=== PATIENT | female | born 1980 | race African-American/Black ===

== ENCOUNTER 2016-10-28 10:34 | Emergency (ER) | payer OTHER ==
[~2016-10-28] VITALS: Ht 170.2 cm; Wt 68.0 kg
[~2016-10-28 10:34] MED LIST: METHO500 PO; NAPR500 PO
[2016-10-28 10:37] VITALS: BP 127/79; PULSE 86; RESP 20; TEMP 98.1; O2SAT 98
--- NOTE | 2016-10-28 11:50 | PD ---
HPI Chief Complaint: Skin Problem Time Seen by Provider: 11:49 Travel History International Travel<30 days: No Contact w/Intl Traveler<30days: No Traveled to known affect area: No History of Present Illness HPI 36-year-old female presents to the emergency Department with complaint of a burn to her left hand after spilling hot water on it last night. Denies paresthesias, loss of sensation, decreased range of motion, decreased strength to the affected hand. Denies fever, chills, nausea, vomiting. Has tried many home treatments, ailments, and medications to alleviate symptoms with good relief. Reports ice to the area works best. Reports blistering to the area. Denies tetanus being up-to-date. Allergies to seafood. No other modifying factors or associated signs and symptoms. PFSH Past Medical History Medical History: Denies Significant Hx Hx Anticoagulant Therapy: No Chemotherapy: No Cerebrovascular Accident: No Diabetes: No Diminished Hearing: No Respiratory: No LMP: 10/23/16 Tubal Ligation: Yes Past Surgical History Hysterectomy: No (TUBAL) Social History Alcohol Use: Yes (OCCASSIONALLY) Tobacco Use: No Substance Use: No Allergies-Medications (Allergen,Severity, Reaction): Coded Allergies: Seafood (Verified Allergy, Unknown, 10/28/16) Reported Meds & Prescriptions Reported Meds & Active Scripts Active Silvadene Topical (Silver Sulfadiazine) 1 % Cream 1 Applic TOPICAL BID PRN Keflex (Cephalexin) 500 Mg Cap 500 Mg PO Q8H 7 Days Robaxin 500 M500 Mg 500 Mg Tab 500 Mg PO QID Naprosyn (Naproxen) 500 Mg Tab 500 Mg PO BID Review of Systems Except as stated in HPI: all other systems reviewed are Neg Physical Exam Narrative GENERAL: Well-nourished, well-developed -[place] female patient, in no acute distress SKIN: Warm and dry. Dorsal aspect of left hand, excluding the fingers, with second-degree burn and two fluid-filled blisters; areas without erythema, edema , or drainage. No signs of infection. Left upper extremities supplemented with 2+ radial pulse and sensory intact and without erythema or edema; with full range of motion at all finger joints and full middle school special education teacher strength. HEAD: Atraumatic. Normocephalic. EYES: Pupils equal and round. No scleral icterus. No injection or drainage. ENT: Mucosa pink and moist. Airway patent. NECK: Trachea midline. CARDIOVASCULAR: Regular rate. RESPIRATORY: No accessory muscle use. GASTROINTESTINAL: Flat. MUSCULOSKELETAL: No obvious deformities. No clubbing. No cyanosis. No edema. NEUROLOGICAL: Awake and alert. Oriented 3. No obvious cranial nerve deficits. Motor grossly within normal limits. Normal speech. PSYCHIATRIC: Appropriate mood and affect; insight and judgment normal. Data Data Last Documented VS Vital Signs Date Time Temp Pulse Resp B/P Pulse Ox O2 Delivery O2 Flow Rate FiO2 10/28/16 10:37 98.1 86 20 127/79 98 Room Air Orders Wound Care (10/28/16 11:50) Tetanus/Diphtheria Tox Adult (Tetanus/Di (10/28/16 12:00) Silver Sulfadia 1% Crm (50 Gm) (Silvaden (10/28/16 12:00) MDM Medical Decision Making Medical Screen Exam Complete: Yes Emergency Medical Condition: Yes Medical Record Reviewed: Yes Differential Diagnosis First-degree burn, second-degree burn, abrasion Narrative Course 36-year-old female physical exam consistent with a second-degree burn to the dorsal aspect of the left hand. Blisters drainage; see my procedure note. Wound care provided, Silvadene and sterile dressing applied. Keflex, Ibuprofen and Silvadene prescribed for home. Instructed patient on wound care and she verbalized understanding and agreement with treatment plan. Patient is medically cleared and stable for discharge. Discussed reasons to return to the emergency department. Instructed patient to follow up with primary care provider. Patient agrees with treatment plan. The patients vital signs are stable and the patient is stable for outpatient follow-up and treatment. Patient discharged home, stable and in no acute distress. Procedures Procedure Narrative INCISION AND DRAINAGE OF BLISTERS: The area was prepped and was sterilely draped. A 18 guage needle was used to make a pinpoint puncture to the base of each blister. Th e area was cleaned normal saline. Silvadene applied. Sterile dressing applied. Diagnosis Primary Impression: Second degree burn of left hand Qualified Code: T23.202A - Second degree burn of left hand, initial encounter Referrals: Primary Care Physician Patient Instructions: General Instructions, Second Degree Burn (ED) Departure Forms: Tests/Procedures, Work Release Enter return to work date: Oct 30, 2016 Additional Instructions: Apply Silvadene cream every 12 hours Keep area clean and dry Follow-up with primary care provider Return to the emergency department immediately with worsening of symptoms Med/Other Pt SpecificInfo: Prescription(s) given Scripts Silver Sulfadiazine Topical (Silvadene Topical)1 % Cream1 Applic TOPICAL BID PRN (WOUND CARE) #50 GM Ref 0 Prov:Kelsey Astorga 10/28/16 Cephalexin (Keflex)500 Mg [id number] Mg PO Q8H 7 Days Ref 0 Prov:Kelsey Astorga 10/28/16 Disposition: 01 DISCHARGE HOME Condition: Stable Kelsey Astorga Oct 28, 2016 11:49
[2016-10-28] MEDS ORDERED: CEPH-460 PO (11:53)
[2016-10-28] MEDS ORDERED: SILV1CRE20 TOPICAL ×2 (11:54→11:55)
[2016-10-28] MEDS ORDERED: SILVER SULFADIAZINE 1% CR 50 GM JAR TOPICAL ONE (12:00)
[2016-10-28] MEDS ORDERED: TETANUS/DIPHTHERIA TOXOID ADULT 0.5 ML VIAL IM ONE (12:00)
== END 2016-10-28 12:11 | disposition home or self-care (01) ==
LOC: NEPB 10:34
DX: T23.262A Burn of second degree of back of left hand, initial encounter (principal); Z23 Encounter for immunization; X12.XXXA Contact with other hot fluids, initial encounter
CPT/HCPCS: 16020; 90471; 90714